=== PATIENT | female | born 1990 | race Caucasian/White ===

== ENCOUNTER 2023-11-07 07:09 | Inpatient (IN) | payer SELFPAY, OTHER ==
[2023-11-07] VITALS (35 sets, daily range): BP systolic 101–130; BP diastolic 64–79; PULSE 68–99; RESP 16; TEMP 36.4–36.9; O2SAT 94–100; BMI 33.3
[2023-11-07] MEDS: Lactated Ringers 1,000 ML 50 ML IV (07:45)
[2023-11-07] MEDS: Oxytocin 15 Units/NS 250ml 15 UNITS/250 ML IV.SOLN 2 UNITS IV (07:52)
[2023-11-07 07:54] LABS: Absolute Lymphocyte Count 1.03 X10^3/uL (0.83-4.51); Absolute Neutrophil Count 3.6 X10^3/uL (2.0-7.7); Basophil# 0.02 X10^3/uL; Basophil% 0.4 % (0-1); Eosinophil# 0.03 X10^3/uL; Eosinophils% 0.6 % (0-5); Hematocrit 31.4 % (37-47); Hemoglobin 10.5 g/dL (12.0-15.0); Lymphocyte # 1.03 X10^3/ul (0.83-4.51); Lymphocyte % 19.7 % (19-41); Mean Corp Hgb Conc 33.4 g/dL (32-36); Mean Corpuscular Hgb 29.8 pg (27.0-32.0); Mean Corpuscular Volume 89.2 fL (81-99); Mean Platelet Vol. 9.5 fl (6.2-12.0); Monocyte# 0.54 X10^3/uL; Monocyte% 10.3 % (0-10); NRBC Flagged by Analyzer 0 % (0-5); Neutrophil # 3.58 X10^3/uL (2.7-7.7); Neutrophil % 68.6 % (47-70); Platelet Count 117 K/mm3 (150-450); RBC Distribution Width CV 14.6 % (11.6-14.6); RBC Distribution Width SD 47.1 fl (35.1-43.9); Red Blood Count 3.52 M/mm3 (4.2-5.4); White Blood Count 5.2 K/mm3 (4.4-11.0)
[2023-11-07 08:19] LABS: Bedside Glucose 68 mg/dL (74-106)
--- NOTE | 2023-11-07 08:24 | PCM.HP.OB ---
HPI - General General Date of Admission: 11/07/23 HPI Narrative MJ WOLFE, is a 33 F who presents for induction of labor for AMA, GDM A1, Gestational thrombocytopenia, and history of previous successful . Maternal Data Information RASHMI Calculator Estimated Delivery Date Method Current WG Current Estimate 11/08/23 Manual 39w 6d PFSH PFSH Medical History (Updated 11/07/23 @ 08:33 by Sarah Inman CNM) Depression DVT (deep venous thrombosis) Gestational diabetes Superficial varicosities Vaginal after Allergy/AdvReac Type Severity Reaction Status Date / Time No Known Allergies Allergy Verified 11/07/23 07:09 Surgical History History of surgery Previous section Social History Smoking Status: Never smoker History Elective abortions Hx Para 7 Spontaneous abortions Hx # Term Pregnancies Ectopic pregnancies Hx # Pregnancies Multiple births # of living children ROS Eyes Eyes: Denies blurry vision, change in vision or spots in vision ENT HEENT: Denies dizziness or headache(s) Cardiovascular Cardiovascular: Denies abdominal pain, chest pain or dyspnea Respiratory/Chest Respiratory/Chest: Denies cough, dyspnea, shortness of breath at rest or shortness of breath with exertion Gastrointestinal Gastrointestinal: Denies abdominal pain, diarrhea or vomiting Genitourinary Genitourinary: Denies change in urinary stream, difficulty urinating or dysuria Musculoskeletal Musculoskeletal: Reports none Integumentary Integumentary: Denies rash Neurologic Neurologic: Denies dizziness, headache(s), memory loss or weakness Psychiatric Psychiatric: Reports none Vital Signs Vital Signs Vital Signs: 11/07/23 07:18 11/07/23 07:18 11/07/23 07:18 Pulse Rate 84 85 Blood Pressure 112/71 BP Systolic 112 BP Diastolic 71 Pulse Ox 11/07/23 07:18 Pulse Rate Blood Pressure BP Systolic BP Diastolic Pulse Ox 99 Weight Weight: 213 lb Body Mass Index (BMI) 33.3 Physical Exam Const alert and no apparent distress General Appearance: cooperative Orientation / Consciousness: awake Exam Limitations: no limitations HEENT normocephalic Eyes General Eye: normal appearance of both eyes Neck full ROM Chest inspection of chest normal Resp normal respiratory effort and normal air movement Effort and Inspection: symmetric chest movement Auscultation: clear to auscultation bilaterally Cardio regular rate GI soft to palpation, non-tender and non-distended Inspection: and other Back/Spine normal ROM Extremity full ROM, normal capillary refill and no calf tenderness Skin no rashes or lesions noted Neuro oriented x3 and CN's II-XII intact bilaterally Psych mental status grossly normal Labs Labs Labs: Blood Type Pending Antibody Screen Pending Hct 31.4 % (37-47) L Hgb 10.5 g/dL (12.0-15.0) L Syphilis Total Ab Pending Assessment & Plan (1) Encounter for induction of labor: (2) Advanced maternal age (AMA) in : (3) Vaginal after : COMMENT: x3 since in 2017 (4) Grand multipara: (5) GDM (gestational diabetes mellitus), class A1: (6) Gestational thrombocytopenia: (7) DVT (deep venous thrombosis): COMMENT: superficial DVT after last PLAN: Plan GBS negative CE /-3- ballotable Pitocin at 4 mu/min- continue to increase Pitocin per orders Epidural when indicated Position changes Dr. Hall updated and is collaborating physician
[2023-11-07 09:01] LABS: Syphilis Antibodies Non-reactive
[2023-11-07 09:41] LABS: Bedside Glucose 89 mg/dL (74-106)
[2023-11-07 09:41] LABS: Bedside Glucose 90 mg/dL (74-106)
[2023-11-07 12:22] LABS: Bedside Glucose 63 mg/dL (74-106)
[2023-11-07 12:43] LABS: Bedside Glucose 83 mg/dL (74-106)
--- NOTE | 2023-11-07 13:41 | EX.PCM.OBRPT ---
Assessment & Plan (1) Gestational thrombocytopenia: (2) GDM (gestational diabetes mellitus), class A1: (3) Grand multipara: (4) Advanced maternal age (AMA) in : (5) DVT (deep venous thrombosis): COMMENT: superficial DVT after last Maternal Data Information RASHMI Calculator Estimated Delivery Date Method Current WG Current Estimate 11/08/23 Manual 39w 6d Vaginal Delivery Maternal Presentation Maternal Presentation: Medically Indicated Induction Type of Induction: Pitocin and Amniotomy Medical Reason for Induction: Maternal Medical Condition: list: (GDM, Gestational thrombocytopenia, AMA, history of ) Operative Information Date of Procedure: 11/07/23 Pre-Operative Diagnosis: Term gestation, Induction of labor Post-Operative Diagnosis: , , Live male infant Surgery / Procedure Performed: Type of Anesthesia: None Estimated Blood Loss: 300 Time of Delivery: 13:29 Findings Description of Procedure: Patient quickly progressed to complete dilation with urge to bear down. With first push, head delivered over intact perineum followed immediately by anterior shoulder and remainder of body without traction. CAN x 1 and CAB x 1 both easily reduced. Vigorous male placed on maternal abdomen and attended to by nursing staff. Pitocin IV started for active management of the third stage of labor. Placenta delivered spontaneously and intact. 3 vessel cord clamped and cut by me after delay and infant placed skin to skin with patient. Fundus firm at U. Vagina and perineum intact. Vaginal sweep completed by me. EBL [address] cc. APGARS 8/9. Dr. Hall and Dr. Mistry notified of delivery. Presentation: Vertex Time of Membrane Rupture: 1142 Amniotic Fluid Description: Clear Placental Delivery Description: Spontaneous Placenta Disposition: [facility] Cord Vessel Description: 3 Vessels Cord Entanglement: Around neck x 1, loose and - (CAB x 1 loose) Nuchal Cord Compression: Without compression Infant A Gender: Male (1 minute): 8 (5 minute): 9 Delayed Cord Clamping: Yes Post Vaginal Delivery Medications Given After Delivery: IV Pitocin Episiotomy Description: None Laceration: None Complication Complications: None
[2023-11-07 14:16] LABS: Bedside Glucose 85 mg/dL (74-106)
[2023-11-07 14:16] LABS: Bedside Glucose 79 mg/dL (74-106)
[2023-11-07] MEDS: Oxytocin 15 Units/NS 250ml 15 UNITS/250 ML IV.SOLN 83 UNITS IV (14:30)
[2023-11-07] MEDS: Acetaminophen 500 MG Tablet 1000 MG PO (21:25)
[2023-11-07] MEDS: Sertraline 50 MG Tablet PO (21:25)
[2023-11-08 04:26] VITALS: BP 116/78; PULSE 61; RESP 16; O2SAT 98
[2023-11-08 04:48] LABS: Absolute Lymphocyte Count 1.21 X10^3/uL (0.83-4.51); Absolute Neutrophil Count 4.9 X10^3/uL (2.0-7.7); Basophil# 0.02 X10^3/uL; Basophil% 0.3 % (0-1); Eosinophil# 0.03 X10^3/uL; Eosinophils% 0.4 % (0-5); Hematocrit 31.4 % (37-47); Hemoglobin 10.2 g/dL (12.0-15.0); Lymphocyte # 1.21 X10^3/ul (0.83-4.51); Lymphocyte % 18.1 % (19-41); Mean Corp Hgb Conc 32.5 g/dL (32-36); Mean Corpuscular Volume 89.2 fL (81-99); Mean Platelet Vol. 9.6 fl (6.2-12.0); Monocyte# 0.49 X10^3/uL; Monocyte% 7.3 % (0-10); NRBC Flagged by Analyzer 0 % (0-5); Neutrophil # 4.93 X10^3/uL (2.7-7.7); Neutrophil % 73.6 % (47-70); Platelet Count 113 K/mm3 (150-450); RBC Distribution Width CV 14.5 % (11.6-14.6); RBC Distribution Width SD 46.5 fl (35.1-43.9); Red Blood Count 3.52 M/mm3 (4.2-5.4); White Blood Count 6.7 K/mm3 (4.4-11.0)
--- NOTE | 2023-11-08 06:44 | PCM.DC.SUM ---
Providers Date of Admission: 11/07/23 Primary Care Physician: Dr. Matthew Duggan DO Reason For Visit: INDUCTION Diagnosis Discharge Diagnosis (1) Gestational thrombocytopenia: Status: Acute Code(s): O99.119 - Other diseases of the blood and blood-forming organs and certain disorders involving the immune mechanism complicating , unspecified trimester; D69.6 - Thrombocytopenia, unspecified (2) GDM (gestational diabetes mellitus), class A1: Status: Acute Code(s): O24.410 - Gestational diabetes mellitus in , diet controlled (3) Vaginal after : Status: Acute Code(s): O34.219 - Maternal care for unspecified type scar from previous delivery (4) Care and examination of lactating mother: Status: Acute Code(s): Z39.1 - Encounter for care and examination of lactating mother Medications at Discharge Home Medications sennosides 8.6 mg-docusate sodium 50 mg tablet (Stool Softener-Stimulant Laxative) 1 - 2 tab PO DAILY PRN PRN Constipation #0 tabs 11/08/23 sertraline 50 mg tablet 50 mg PO QHS #0 tabs 11/08/23 Hospital Course Operations None Procedures None Summary of Care Provided Minutes Spent on Discharge: 15 Hospital Course: Patient had . Hospital course was uneventful. Physical Exam Const alert and no apparent distress General Appearance: cooperative and comfortable Exam Limitations: no limitations HEENT normocephalic Eyes General Eye: normal appearance of both eyes Neck full ROM General: normal visual inspection Chest Chest: symmetrical chest wall rise Resp normal respiratory effort and normal air movement Effort and Inspection: symmetric chest movement Auscultation: clear to auscultation bilaterally Cardio regular rate and regular rhythm GI normal to inspection, nondistended, normoactive bowel sounds Back/Spine normal ROM Extremity full ROM and no calf tenderness General Extremity: normal exam except as noted Skin no rashes or lesions noted Neuro CN's II-XII intact bilaterally Psych mental status grossly normal Weight / BMI Weight Weight: 213 lb Body Mass Index (BMI) 33.3 ABG / Lab / Microbiology Data 11/08/23 04:36 Laboratory: Laboratory Results - last 24 hr 11/07/23 07:35: WBC 5.2, RBC 3.52 L, Hgb 10.5 L, Hct 31.4 L, MCV 89.2, MCH 29.8, MCHC 33.4, RDW Std Deviation 47.1 H, RDW Coeff of Stephanie 14.6, Plt Count 117 L, MPV 9.5, Immature Gran % (Auto) 0.400, Neut % (Auto) 68.6, Lymph % (Auto) 19.7, Victoria % (Auto) 10.3 H, Eos % (Auto) 0.6, Baso % (Auto) 0.4, Absolute Neuts (auto) 3.6, Absolute Lymphs (auto) 1.03, Nucleated RBC % 0, Syphilis Total Ab Non-reactive, Blood Type A POSITIVE, Antibody Screen NEGATIVE, Antigen Identification S ANTIGEN - NEGATIVE, Crossmatch See Detail 11/07/23 07:49: POC Glucose 68 L 11/07/23 08:34: POC Glucose 90 11/07/23 09:13: POC Glucose 89 11/07/23 12:04: POC Glucose 63 L 11/07/23 12:23: POC Glucose 83 11/07/23 13:09: POC Glucose 79 11/07/23 13:47: POC Glucose 85 11/08/23 04:36: WBC 6.7, RBC 3.52 L, Hgb 10.2 L, Hct 31.4 L, MCV 89.2, MCH 29.0, MCHC 32.5, RDW Std Deviation 46.5 H, RDW Coeff of Stephanie 14.5, Plt Count 113 L, MPV 9.6, Immature Gran % (Auto) 0.300, Neut % (Auto) 73.6 H, Lymph % (Auto) 18.1 L, Victoria % (Auto) 7.3, Eos % (Auto) 0.4, Baso % (Auto) 0.3, Absolute Neuts (auto) 4.9, Absolute Lymphs (auto) 1.21, Nucleated RBC % 0 D/C Instructions Discharge Diet: No restrictions May resume sexual activity in: 6-8 weeks Weight Bearing Status: Weight bearing as tolerated Call your doctor if you observe: Fever of 101 or Higher, Inability to urinate, Using more than 1 pad per hour, Shortness of breath, Chest pain, Calf discomfort and Uncontrolled pain Please Follow Up With: Sarah Inman CNM When: 2 weeks virtual visit/ 6 weeks in office Meaningful Use Info Meaningful Use Diagnoses (Choose all that apply): None applicable Discharge Plan Admission Admit Date/Time: 11/07/23 07:09 Primary Reason for Your Visit: Labor and Delivery Attending Provider: Alyson Anna Primary Care Provider: Matthew Duggan Discharge Orders/Prescriptions Prescriptions: New sennosides-docusate sodium [Stool Softener-Stimulant Laxat] 8.6-50 mg Tablet 1 - 2 tab PO DAILY PRN PRN (Reason: Constipation) Qty: 0 0RF sertraline 50 mg Tablet 50 mg PO QHS Qty: 0 0RF Referrals / Follow Up: Sarah Inman CNM [Med Staff - Adv Practice Prof] - Matthew Duggan DO [Primary Care Provider] - Disposition Disposition (needs filled in before D/C Order can be placed): Home, Self Care
[2023-11-08 09:00] VITALS: BP 112/87; PULSE 84; RESP 16; TEMP 36.7; O2SAT 98
[2023-11-08 13:00] VITALS: BP 116/74; PULSE 88; RESP 16; TEMP 36.8
[2023-11-08] MEDS: Naproxen 500 MG Tablet PO (13:22)
--- NOTE | 2023-11-08 17:00 | CASEMGMT ---
Social Work Assessment Labor and Delivery Unit Patient Address:[address] [place] [address] [address] [place] [address] Phone number: [phone] Date of Referral: 11/08/23 Time of Referral:? 142 Referred By: Candi Iraheta Date of Intervention: ?11/08/23? Time of Intervention:? 1500 Reason for Referral:? mental health Sw completed chart review and acknowledges social work consult due to maternal mental health history positive for maternal mental health. Sw presented to bedside and introduced self to mother of baby (ZHANG Gongora) and explained sw role during hospitalization. Sw completed psychosocial assessment and provided ongoing support for MOB. History obtained from: medical records, MOB Household composition: Currently residing in the family home is MOB, father of baby (KALI Trevizo), their 7 other children (Ivan- 11, Calli- 10, Roshni- 8, Deyvi- 7, Da- 5, Shaji-3, and Aixa- 1) and now baby when ready for discharge. No concerns with housing at this time. Patient's parent/guardian status:?TRINITY states that she and IVETT have been together for 13 years. They were introduced to each other by mutual friends and living in the same community. TRINITY denies any safety concerns with IVETT, states that she is safe at home and no issues regarding domestic violence or intimate partner violence. ? Medical History: ?TRINITY is 33 year old female who is 11, para 7- now 8 following labor and delivery of . TRINITY received routine care during with [facility]. TRINITY presented to hospital and received an induction of labor at 39 weeks gestation. Baby was born via successful on 11/07/23. Baby boy, named Deny, was born weighing 7lb 8oz with apgars of 8 and 9 at one and five minutes of life, respectfully. Baby will be followed by Dr. Duggan for pediatrics. TRINITY states that she is breast feeding and this is going well. Educational Status:?Both parents completed the 8th grade, which is customary in their [employer] culture. No concerns with reading, learning or comprehension. 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 TRINITY states that he is able to take a couple of days off of work now that the baby has been born. 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 Infant Supplies:?? TRINITY reports that they have all necessary baby supplies, including: car seat, safe sleep space, clothes, diapers and wipes. Childcare/Caregiver(s):? TRINITY will be the primary caregiver to baby, along with IVETT when he is not working. Transportation:?? MOB states that they use a horse and buggy for their way of transportation. Programs/Agencies Involved: Parents are not connected to any community resources that provide financial assistance to them at this time. ??? Children Services/Legal Issues:???NO history of involvement, no issues or concerns warranting referral to be made at this time. Behavioral Health Issues: ??Mental Health History:?TRINITY states that IVETT has depression and is prescribed zoloft. MOB states that she has also been diagnosed with depression and is prescribed zoloft. TRINITY denies experiencing baby blues or depression/ anxiety following her former deliveries. MOB states that she is familiar with signs and symptoms to be on the lookout for. ?? Substance Use History:?MOB denies substance use prior to and during . ? Family History:?MOB denies family history of addiction or significant mental health history. ? Drug Screens: ??No drug screens observed in chart review. Family/Social Stressors:? MOB denies any issues, concerns or stressors at this time. Support Systems: TRINITY states that IVETT is her biggest support at this time. TRINITY also states that she has a niece that will be staying with the family for 6 weeks to help with childcare and care. Depression/Shaken Baby/Safe Sleeping:? Sw educated MOB on signs and symptoms of baby blues and depression/ anxiety. MOB expressed understanding. MOB states that if she were to struggle she feels comfortable discussing what she is feeling/ experiencing with FORodolfo and other family members. MOB states that she also feels comfortable talking to her prescriber to discuss medication adjustments if necessary. Sw educated MOB on shaken baby prevention and ABCs of safe sleep. MOB expressed understanding. ASSESSMENT:? MOB and baby admitted following labor and delivery of . MOB with mental health history positive for anxiety. MOB denies experiencing mental health issues after any of her previous deliveries. MOB states that she has everything that she needs for baby and will have a family member to help her with the other children when discharged to home. MOB made and maintained eye contact with sw throughout completion of psychosocial assessment. Baby was asleep in bassinet following circumcision so MOB and baby interactions not observed at this time. MOB was receptive to sw involvement. PLAN:?MOB and baby to be discharged when medically ready. ?No other services requested or indicated. Taylor Pacheco, SENIOR JAVA ARCHITECT, DIAPER FOLDER
[2023-11-08 18:00] VITALS: BP 124/80; PULSE 88; RESP 16; TEMP 36.7
--- NOTE | 2023-11-29 12:06 | NURSING ---
Delivery record corrected for successful
== END 2023-11-08 19:05 | disposition home or self-care (01) | DRG 806 ==
PROVIDERS: Admitting Provider Advanced Practice Midwife; PCP Family Medicine; Referring Provider Advanced Practice Midwife; Visit Provider Advanced Practice Midwife
DX: O24.410 Gestational diabetes mellitus in pregnancy, diet controlled (principal); Z37.0 Single live birth; O99.12 Other diseases of the blood and blood-forming organs and certain disorders involving the immune mechanism complicating childbirth; D69.6 Thrombocytopenia, unspecified; O34.219 Maternal care for unspecified type scar from previous cesarean delivery; O26.23 Pregnancy care for patient with recurrent pregnancy loss, third trimester; O69.2XX0 Labor and delivery complicated by other cord entanglement, with compression, not applicable or unspecified; Z86.718 Personal history of other venous thrombosis and embolism; Z64.1 Problems related to multiparity; Z3A.39 39 weeks gestation of pregnancy
CPT/HCPCS: 59025; 59050; 82962; 85025; 86780; 86850; 86900; 86901; 86902; 86905; 86920; 86921; 86922; 99221; J7120; G0378